=== PATIENT | male | born 1990 | race Caucasian/White ===

== ENCOUNTER 2020-03-03 14:21 | Outpatient (CLI) | payer OTHER, SELFPAY ==
[2020-03-04 01:17] LABS: SARS-CoV-2 RNA PCR Negative
== END 2020-03-03 14:22 | disposition home or self-care (01) ==
LOC: CHSLAB 14:25
PROVIDERS: PCP Nurse Practitioner Family; Visit Provider Nurse Practitioner Family
DX: Z20.828 Contact with and (suspected) exposure to other viral communicable diseases (principal)
CPT/HCPCS: 87635; C9803; U0003

== ENCOUNTER 2023-01-04 16:27 | Emergency (ER) | payer OTHER, SELFPAY ==
--- NOTE | ~2023-01-04 | CT_ITS ---
EXAMINATION: CTA brain DATE: 01/04/2023 18:05 INDICATION: Anisocoria. TECHNIQUE: Computed tomographic angiography (CTA) of the head was performed without and with 100 mL O mnipaque-350 intravenous contrast. Automated exposure control and iterative reconstruction technique were employed. The dose-length product was 1195.20 mGy-cm. Maximum intensity projection 3D reconstru ctions were created. Volume-rendered 3D reconstructions of the intracranial arteries were created by the technologist on a separate workstation. COMPARISON: None. FINDINGS: There is no intracranial hemorrhage, acute infarction, or abnormal intracranial mass lesion . The ventricles are normal in size. The orbits are normal. The paranasal sinuses are clear. The mast oid air cells are normal. There is a 2.4 x 0.6 cm lipoma in right posterior scalp. Left vertebral art sabino is dominant. There is no significant stenosis of basilar artery or the posterior cerebral arterie s. There is no significant stenosis of the intracranial internal carotid arteries or anterior or midd le cerebral arteries. Anterior communicating artery is normal. The posterior communicating arteries a re normal. There is no aneurysm. IMPRESSION: 1. Normal brain. No aneurysm or significant intracranial internal stenosis. Reviewed, dictated and finalized at location E.
[2023-01-04 16:35] VITALS: BP 148/90; PULSE 94; RESP 17; TEMP 37.2; O2SAT 98
[2023-01-04 16:39] VITALS: BP 132/98; PULSE 94; RESP 20; TEMP 37.2; O2SAT 98
[2023-01-04 17:17] LABS: Alanine Aminotransferase 43 U/L (16-63); Albumin Level 4.6 g/dL (3.4-5.0); Alkaline Phosphatase 86 U/L (46-116); Anion Gap 13 mmol/L (8-16); Aspartate Amino Transferase 29 U/L (15-37); Bilirubin,Total 0.5 mg/dL (0.00-1.00); Blood Urea Nitrogen 20 mg/dL (7-18); Calcium 9.4 mg/dL (8.5-10.1); Carbon Dioxide 24 mmol/L (21-32); Chloride 103 mmol/L (98-108); Estimated CRCL calculation 92 ml/min; Estimated Glomerular Filt Rate > 60; Glucose 108 mg/dL (70-99); Osmolality Calculated 293 mOsm/kg (285-295); Potassium 4.3 mmol/L (3.5-5.1); Sodium 140 mmol/L (136-145); Total Protein 7.6 g/dL (6.4-8.2)
--- NOTE | 2023-01-04 18:30 | ED.EYEPROB ---
HPI - Eye Problem General Chief complaint: Eye Problems Stated complaint: left eye pupil enlarged Time Seen by Provider: 01/04/23 16:45 Source: patient Mode of arrival: ambulatory Limitations: no limitations History of Present Illness HPI Narrative: this is a 32-year-old male with no significant past medical history, Presents with unequal pupil left pupil is dilated does react and the right pupil reacts normally there is no pain there is no swelling around the eye no head trauma no eye trauma. does not take any medications does take some supplements and blood pressure has been stable although his pressure today is 148/90, was outdoors doing some lawn work there was no head trauma no injuries to the left eye. Patient is asymptomatic neurologically intact with no headache no blurry vision no visual loss no fever chills no neck pain no palpitations no eye pain or pain with pressure to the eye. Patient does use some energy drinks, has not used any antihistamine by mouth are eye drops. Developed this some unequal pupil on the left side in that he noticed this discrepancy and called his primary care physician and presented to the ER for further evaluation. patient is nonsmoker, no significant past medical history. chief complaint: other ( unequal pupil) Onset description: gradual Duration: constant Location: left eye Related Data Home Medications Medication Instructions Recorded Confirmed No Home Medications 01/04/23 01/04/23 Allergies Allergy/AdvReac Type Severity Reaction Status Date / Time Penicillins Allergy Intermediate unknown Verified 01/04/23 16:34 Review of Systems Review of Systems: All systems reviewed & are unremarkable except as noted in HPI and below PMFSH Past Medical History Medical History Anxiety No active medical problems Surgical History Surgical History No history of previous surgery Social History Social History Smoking status: Former smoker Tobacco type: cigarettes Alcohol intake: never Substance use: never Living arrangements: with family Exam Const: General: healthy appearing Nutritional Appearance: well nourished Orientation/consciousness: patient oriented x3 Limitations: no limitations HENMT: Head: normal to inspection Eyes: Conjunctivae: conjunctivae normal Direct Ophthalmoscopy: no photophobia Other: Unequal pupil left pupil dilated compared to the right pupil does react to light Neck: Neck: normal visual inspection Chest: Chest palpation & inspection: normal inspection of the chest Resp: Effort & Inspection: normal respiratory effort Auscultation: clear to auscultation bilaterally Cardio: Rate: regular rate Rhythm: regular rhythm GI: Auscultation: normal bowel sounds Skin: General skin exam: normal color Rashes: no rashes Wounds: no wounds Neuro: General: patient oriented x3, moves all extremities, no meningeal signs, no focal motor deficits and CN's II-XI intact bilaterally Cranial nerves: Yes Nystagmus not present Speech: normal speech Gait exam (Neuro): Normal gait present Extrem: General: normal to inspection, no clubbing, cyanosis or edema and no pedal edema Psych: Mental Status: mental status grossly normal Course Course Emergency Course: Patient had a blood pressure checked and repeat blood pressure 132/98, had a CTA performed which shows no acute abnormalities no aneurysms noted. Vital Signs Vital signs: Vital Signs Temperature 37.2 C 01/04/23 16:35 Pulse Rate 94 01/04/23 16:35 Respiratory Rate 17 01/04/23 16:35 Blood Pressure 148/90 H 01/04/23 16:35 Pulse Oximetry 98 01/04/23 16:35 Temperature 37.2 C 01/04/23 16:39 Pulse Rate 94 01/04/23 16:39 Respiratory Rate 20 01/04/23 16:39 Blood Pressure 132/98 H 01/04/23 16:39
[2023-01-04 18:49] VITALS: BP 135/79; PULSE 80; RESP 18; RESP 20; TEMP 36.9; O2SAT 98
== END 2023-01-04 18:49 | disposition home or self-care (01) ==
PROVIDERS: Emergency Provider Emergency Medicine; PCP Internal Medicine
DX: H57.02 Anisocoria (principal); Z87.891 Personal history of nicotine dependence
CPT/HCPCS: 36415; 70496; 80053; 99284; Q9967

== ENCOUNTER 2023-06-25 18:54 | Emergency (ER) | payer OTHER, SELFPAY ==
--- NOTE | 2023-06-25 20:27 | PC.NURSE ---
1934 - pt's family arrives: mother, brother, [id number]. erp speaking with family. 1944 - family at bedside with pt. 1954 - system development manager vlad remy at bedside speaking with family.
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
== END 2023-06-25 20:51 | disposition expired ==
PROVIDERS: Emergency Provider Emergency Medicine; PCP Internal Medicine
DX: I46.9 Cardiac arrest, cause unspecified (principal); Z87.891 Personal history of nicotine dependence
CPT/HCPCS: 92950; 99285; J0171; J0461